=== PATIENT | female | born 1965 | race Caucasian/White ===

== ENCOUNTER 2017-05-29 19:47 | Emergency (ER) | payer MEDICAID ==
[~2017-05-29] VITALS: Ht 165.1 cm; Wt 71.0 kg
[~2017-05-29 19:47] MED LIST: PANT-47 PO; SUCR1ORA2 PO
[2017-05-29 20:18] VITALS: BP 103/78
[2017-05-29 21:07] LABS: BASOPHILS # (AUTO) 0.2 X10'3 (0-0.2); BASOPHILS % (AUTO) 1.7 % (0-1); EOSINOPHILS # (AUTO) 0.1 X10'3 (0-0.9); EOSINOPHILS % (AUTO) 0.6 % (0-6); HEMATOCRIT 43.3 % (35.0-45.0); HEMOGLOBIN 14.7 g/dl (12.0-16.0); LYMPHOCYTES # (AUTO) 0.5 X10'3 (1.1-4.8); LYMPHOCYTES % (AUTO) 5.3 % (21-51); MEAN CORPUSCULAR HEMOGLOBIN 29.6 PG (27.0-31.0); MEAN CORPUSCULAR VOLUME 87.2 FL (78-98); MEAN PLATELET VOLUME 10.2 FL (7.4-10.4); MONOCYTES # (AUTO) 0.6 X10'3 (0-0.9); MONOCYTES % (AUTO) 5.7 % (2-12); NEUTROPHILS % (AUTO) 86.7 % (42-75); PLATELET COUNT 258 X10'3 (140-440); RED BLOOD COUNT 4.96 X10'6 (4.20-5.60); RED CELL DISTRIBUTION WIDTH 13.2 % (11.5-14.5); WHITE BLOOD COUNT 10.3 X10'3 (4.5-11.0)
[2017-05-29 21:18] LABS: PROTHROMBIN TIME 9.9 SECONDS (9.0-12.0)
[2017-05-29 21:22] LABS: ALANINE AMINOTRANSFERASE 32 U/L (12-78); ALBUMIN 4.3 G/DL (3.4-5.0); ALBUMIN/GLOBULIN RATIO 1.2 (1.1-1.5); ALKALINE PHOSPHATASE 109 IU/L (46-116); ANION GAP 14 (8-16); ASPARTATE AMINO TRANSFERASE 24 U/L (10-37); BILIRUBIN,TOTAL 0.7 MG/DL (0.1-1.0); BLOOD UREA NITROGEN 20 MG/DL (7-18); BUN/CREATININE RATIO 22.5 (6.6-38.0); CALCIUM 9.5 MG/DL (8.5-10.1); CHLORIDE 102 MMOL/L (99-107); CREATININE 0.89 MG/DL (0.40-0.90); GLUCOSE 129 MG/DL (70-104); POTASSIUM 3.7 MMOL/L (3.5-5.1); SODIUM 140 MMOL/L (135-145); TOTAL CARBON DIOXIDE 24.1 MMOL/L (24-32); eGFR 67 ML/MIN
[2017-05-29 21:35] LABS: GIANT PLATELET FEW; PLATELET ESTIMATE NORMAL
[2017-05-29 23:00] LABS: LIPASE 82 U/L (73-393); TROPONIN I < 0.04 NG/ML (0.0-0.05)
[2017-06-04] MEDS ORDERED: SERT100T10 PO (09:08)
== END 2017-05-30 03:57 | disposition left against medical advice (07) ==
LOC: ER 19:52
DX: R10.13 Epigastric pain (principal); R11.2 Nausea with vomiting, unspecified; Z53.21 Procedure and treatment not carried out due to patient leaving prior to being seen by health care provider
CPT/HCPCS: 36415; 80053; 83690; 84484; 85025; 85610; 93005; 99281

== ENCOUNTER 2018-10-10 16:46 | Emergency (ER) | payer MEDICAID ==
[~2018-10-10] VITALS: Ht 154.9 cm; Wt 69.2 kg
[~2018-10-10 16:46] MED LIST changes: +HYDR-3686 PO; +SERT100T10 PO; -SUCR1ORA2 PO
--- NOTE | 2018-10-10 18:23 | NUR ---
STAFF REPORTS NIL. CALL PLACED TO NUMBER ON FILE, SPOKE WITH ISAI, SHE REPORTS THAT SHE IS RIGHT OOUTSIDE AND WILL RETURN IN TO BE ROOMED.
[2018-10-10 19:06] LABS: BASOPHILS # (AUTO) 0.1 X10'3 (0-0.2); BASOPHILS % (AUTO) 1.3 % (0-1); EOSINOPHILS # (AUTO) 0.2 X10'3 (0-0.9); EOSINOPHILS % (AUTO) 2.2 % (0-6); HEMATOCRIT 45.7 % (35.0-45.0); HEMOGLOBIN 15.5 g/dl (12.0-16.0); LYMPHOCYTES # (AUTO) 2.6 X10'3 (1.1-4.8); LYMPHOCYTES % (AUTO) 27.2 % (21-51); MEAN CORPUSCULAR HEMOGLOBIN 30.5 PG (27.0-31.0); MEAN CORPUSCULAR HGB CONC 33.9 g/dL (33.0-36.5); MEAN CORPUSCULAR VOLUME 89.9 FL (78-98); MEAN PLATELET VOLUME 8.9 FL (7.4-10.4); MONOCYTES # (AUTO) 0.7 X10'3 (0-0.9); NEUTROPHILS % (AUTO) 62.3 % (42-75); PLATELET COUNT 295 X10'3 (140-440); RED BLOOD COUNT 5.09 X10'6 (4.20-5.60); RED CELL DISTRIBUTION WIDTH 13.4 % (11.5-14.5); WHITE BLOOD COUNT 9.7 X10'3 (4.5-11.0)
[2018-10-10 19:25] LABS: ALANINE AMINOTRANSFERASE 35 U/L (12-78); ALBUMIN/GLOBULIN RATIO 1.1 (1.1-1.5); ALKALINE PHOSPHATASE 84 IU/L (46-116); ANION GAP 5 (8-16); ASPARTATE AMINO TRANSFERASE 12 U/L (10-37); BILIRUBIN,TOTAL 0.2 MG/DL (0.1-1.0); BLOOD UREA NITROGEN 17 MG/DL (7-18); BUN/CREATININE RATIO 15.6 (6.6-38.0); CALCIUM 8.7 MG/DL (8.5-10.1); CHLORIDE 104 MMOL/L (99-107); CREATININE 1.09 MG/DL (0.40-0.90); GLUCOSE 92 MG/DL (70-104); POTASSIUM 3.9 MMOL/L (3.5-5.1); SODIUM 139 MMOL/L (135-145); TOTAL CARBON DIOXIDE 30.1 MMOL/L (24-32); TOTAL PROTEIN 7.7 G/DL (6.4-8.2); eGFR 53 ML/MIN
[2018-10-10 19:27] LABS: PARTIAL THROMBOPLASTIN TIME 27 SECONDS (22-32)
[2018-10-10 20:22] VITALS: BP 124/81
== END 2018-10-10 20:23 | disposition home or self-care (01) ==
LOC: ER 16:47
DX: G89.29 Other chronic pain (principal); F32.9 Major depressive disorder, single episode, unspecified; F17.210 Nicotine dependence, cigarettes, uncomplicated; Z90.49 Acquired absence of other specified parts of digestive tract; Z79.899 Other long term (current) drug therapy
CPT/HCPCS: 36415; 71045; 80053; 84484; 85025; 85610; 85730; 93005; 99284

== ENCOUNTER 2018-12-17 23:48 | Emergency (ER) | payer MEDICAID ==
[~2018-12-17] VITALS: Ht 154.9 cm; Wt 77.3 kg
[~2018-12-17 23:48] MED LIST changes: -HYDR-3686 PO
--- NOTE | 2018-12-17 23:50 | NUR ---
20 GUAGE IV TO RIGHT HAND PLACE BY SHANKAR SANTIAGO
[2018-12-17] MEDS ORDERED: adenosine 3mg/ml 2ml vial IV ONE (23:55)
--- NOTE | 2018-12-18 | NUR ---
LABS DRAWN/ DEFIB/ CARDIO VERT PADS PLACE ON PT
--- NOTE | 2018-12-18 00:01 | NUR ---
PT SELF CONVERTED HR 92 99% ROOM AIR RESP 16 BP 152/104 NO CHEMICAL CONVERSATION NO ELECTRICAL CONVERSATION .
--- NOTE | 2018-12-18 00:03 | NUR ---
2ND EKG COMPLETED AFTER PT SELF CONVERTED SVT
[2018-12-18 00:15] LABS: BASOPHILS # (AUTO) 0.2 X10'3 (0-0.2); BASOPHILS % (AUTO) 1.6 % (0-1); EOSINOPHILS # (AUTO) 0.3 X10'3 (0-0.9); EOSINOPHILS % (AUTO) 2.3 % (0-6); HEMATOCRIT 43.3 % (35.0-45.0); HEMOGLOBIN 14.7 g/dl (12.0-16.0); LYMPHOCYTES # (AUTO) 4.5 X10'3 (1.1-4.8); LYMPHOCYTES % (AUTO) 41.3 % (21-51); MEAN CORPUSCULAR HEMOGLOBIN 29.9 PG (27.0-31.0); MEAN CORPUSCULAR VOLUME 88.1 FL (78-98); MONOCYTES % (AUTO) 9.6 % (2-12); NEUTROPHILS # (AUTO) 4.9 X10'3 (1.8-7.7); NEUTROPHILS % (AUTO) 45.2 % (42-75); PLATELET COUNT 304 X10'3 (140-440); RED BLOOD COUNT 4.92 X10'6 (4.20-5.60); RED CELL DISTRIBUTION WIDTH 12.8 % (11.5-14.5); WHITE BLOOD COUNT 10.9 X10'3 (4.5-11.0)
[2018-12-18] MEDS ORDERED: metoprolol succinate 25mg (24-HOUR) SR. Tablet PO SCH ×2 (00:15→08:00)
[2018-12-18] MEDS ORDERED: metoprolol succinate 25mg (24-HOUR) SR. Tablet PO ONE (00:15)
[2018-12-18 00:24] LABS: ALANINE AMINOTRANSFERASE 38 U/L (12-78); ALBUMIN 3.7 G/DL (3.4-5.0); ALKALINE PHOSPHATASE 87 IU/L (46-116); ANION GAP 12 (8-16); ASPARTATE AMINO TRANSFERASE 20 U/L (10-37); BILIRUBIN,TOTAL 0.2 MG/DL (0.1-1.0); BLOOD UREA NITROGEN 14 MG/DL (7-18); BUN/CREATININE RATIO 12.6 (6.6-38.0); CALCIUM 9.7 MG/DL (8.5-10.1); CHLORIDE 107 MMOL/L (99-107); CREATININE 1.11 MG/DL (0.40-0.90); GLUCOSE 127 MG/DL (70-104); SODIUM 142 MMOL/L (135-145); TOTAL CARBON DIOXIDE 22.7 MMOL/L (24-32); TOTAL PROTEIN 7.5 G/DL (6.4-8.2); eGFR 51 ML/MIN
[2018-12-18 00:28] LABS: PARTIAL THROMBOPLASTIN TIME 26 SECONDS (22-32)
[2018-12-18 00:35] LABS: LARGE PLATELETS FEW; PLATELET ESTIMATE NORMAL
[2018-12-18 00:36] LABS: MAGNESIUM 2.3 MG/DL (1.5-2.4); PHOSPHORUS 3.9 MG/DL (2.3-4.5)
[2018-12-18] MEDS ORDERED: normal saline 1000ML IV soln IVB ONE (01:10)
--- NOTE | 2018-12-18 01:10 | NUR ---
SPOKE WITH DR TUTTLE ABOUT IVF BOLUS PRIOR TO DISCHARGE . MD STATED NO NEED FOR NS BOLUS BP PRESSURE OK
--- NOTE | 2018-12-18 02:00 | NUR ---
STRIPS OF SVT AT SELFF CONVERSTION PRINTED AND ADDED TO CHART
[2018-12-18 02:43] VITALS: BP 117/87
== END 2018-12-18 02:00 | disposition home or self-care (01) ==
LOC: ER 23:48
DX: I47.1 Supraventricular tachycardia (principal); F32.9 Major depressive disorder, single episode, unspecified; G89.29 Other chronic pain; Z90.49 Acquired absence of other specified parts of digestive tract; Z79.899 Other long term (current) drug therapy
CPT/HCPCS: 36415; 71045; 80053; 83735; 84100; 84484; 85025; 85610; 85730; 93005; 99284; J0153

== ENCOUNTER 2018-12-19 16:11 | Emergency (ER) | payer MEDICAID | END 2018-12-19 19:10 | disposition left against medical advice (07) | LOC: ER 16:12 | DX: R10.9 Unspecified abdominal pain (principal); Z53.21 Procedure and treatment not carried out due to patient leaving prior to being seen by health care provider ==

== ENCOUNTER 2018-12-23 13:59 | Observation (INO) | payer MEDICAID ==
[~2018-12-23] VITALS: Ht 154.9 cm; Wt 76.4 kg
[2018-12-23 14:35] LABS: BASOPHILS # (AUTO) 0.1 X10'3 (0-0.2); BASOPHILS % (AUTO) 1.4 % (0-1); EOSINOPHILS # (AUTO) 0.3 X10'3 (0-0.9); HEMOGLOBIN 12.9 g/dl (12.0-16.0); MEAN PLATELET VOLUME 8.6 FL (7.4-10.4); NEUTROPHILS # (AUTO) 4.5 X10'3 (1.8-7.7); WHITE BLOOD COUNT 8.7 X10'3 (4.5-11.0)
[2018-12-23 14:37] LABS: EOSINOPHILS % (AUTO) 2.9 % (0-6); HEMATOCRIT 38.4 % (35.0-45.0); LYMPHOCYTES % (AUTO) 34.2 % (21-51); MEAN CORPUSCULAR HEMOGLOBIN 30.1 PG (27.0-31.0); MEAN CORPUSCULAR HGB CONC 33.7 g/dL (33.0-36.5); MEAN CORPUSCULAR VOLUME 89.4 FL (78-98); MONOCYTES # (AUTO) 0.9 X10'3 (0-0.9); MONOCYTES % (AUTO) 9.8 % (2-12); NEUTROPHILS % (AUTO) 51.7 % (42-75); PLATELET COUNT 285 X10'3 (140-440); RED BLOOD COUNT 4.29 X10'6 (4.20-5.60); RED CELL DISTRIBUTION WIDTH 12.8 % (11.5-14.5)
[2018-12-23 14:52] LABS: ALANINE AMINOTRANSFERASE 49 U/L (12-78); ALBUMIN 3.7 G/DL (3.4-5.0); ALBUMIN/GLOBULIN RATIO 1.1 (1.1-1.5); ALKALINE PHOSPHATASE 71 IU/L (46-116); ANION GAP 8 (8-16); ASPARTATE AMINO TRANSFERASE 19 U/L (10-37); BILIRUBIN,TOTAL 0.2 MG/DL (0.1-1.0); BLOOD UREA NITROGEN 16 MG/DL (7-18); BUN/CREATININE RATIO 16.7 (6.6-38.0); CALCIUM 8.4 MG/DL (8.5-10.1); CHLORIDE 105 MMOL/L (99-107); CREATININE 0.96 MG/DL (0.40-0.90); GLUCOSE 88 MG/DL (70-104); SODIUM 143 MMOL/L (135-145); TOTAL CARBON DIOXIDE 30.1 MMOL/L (24-32); eGFR 61 ML/MIN
[2018-12-23 14:58] LABS: MAGNESIUM 2.2 MG/DL (1.5-2.4)
[2018-12-23] MEDS ORDERED: mag hydrox/Alum hydrox/simeth 30ml oral suspension PO PRN (15:35)
[2018-12-23] MEDS ORDERED: ondansetron/PF 4mg/2ml inj IV PRN (15:35)
[2018-12-23] MEDS ORDERED: magnesium hydroxide 30ml (MOM) UD suspension PO PRN (15:35)
[2018-12-23] MEDS ORDERED: morphine 2 MG/ML inj. syringe IV PRN ×2 (15:35)
[2018-12-23] MEDS: normal saline 1000ml 1,000 ML IV SCH (15:58)
[2018-12-23 16:16] LABS: CLARITY,URINE SLIGHTLY CLOUDY (Clear); COLOR,URINE YELLOW (Yellow); GLUCOSE, URINE NEGATIVE (Neg); KETONES,URINE NEGATIVE (Neg); LEUKOCYTE ESTERASE ,URINE NEGATIVE (Neg); NITRITES, URINE NEGATIVE (Neg); OCCULT BLOOD,URINE NEGATIVE (Neg); PROTEIN,URINE NEGATIVE (Neg); UROBILINOGEN,URINE 0.2 E.U/dL (0.2-1.0)
[2018-12-23 16:18] LABS: UA COLLECTION TYPE CLN CATCH MIDSTREAM
--- NOTE | 2018-12-23 16:20 | NUR ---
Received report from Shannon CHAPARRO in ED. All questions answered. Patient will be admitted to room 3012A.
[2018-12-23 16:26] LABS: SQUAMOUS EPITHELIAL CELL,UR MANY /LPF (FEW)
[2018-12-23 16:27] LABS: RBC,URINE 0-2 /HPF (0-2); WBC,URINE 0-4 /HPF (0-4)
[2018-12-23 16:28] LABS: BACTERIA,URINE 1+ /HPF (Neg)
--- NOTE | 2018-12-23 16:33 | NUR ---
ECHO AT BEDSIDE
--- NOTE | 2018-12-23 16:55 | NUR ---
Patient admitted to PCU 3012A. Tele monitor applied, VS taken and stable. 2 RN skin assessment done. Pt oriented to room, has no complaints at this time.
[2018-12-23] MEDS ORDERED: regadenoson 0.4mg/5ml syringe IV PRN (17:10)
[2018-12-23] MEDS ORDERED: aminophylline 250mg/10ml inj. IV PRN (17:10)
[2018-12-23] MEDS ORDERED: metoprolol tartrate 25mg tablet PO ONE (17:10)
[2018-12-23] MEDS ORDERED: metoprolol tartrate 1mg/ml inj IV PRN (17:10)
[2018-12-23] MEDS ORDERED: nitroGLYCERIN 0.4mg SUBLingual tab SL PRN (17:10)
[2018-12-23 17:40] VITALS: BP 109/78
[2018-12-23 18:00] VITALS: BP 118/82
--- NOTE | 2018-12-23 18:05 | NUR ---
Patient in room PCU 3012. I have received report from SHANKAR Salas and had the opportunity to ask questions and assume patient care.
[2018-12-23] MEDS ORDERED: METO-292 PO (18:11)
[2018-12-23] MEDS ORDERED: KEP500T PO (18:11)
--- NOTE | 2018-12-23 18:30 | NUR ---
Patient in room PCU 3012. I have received report from SHANKAR Salas and had the opportunity to ask questions and assume patient care.
--- NOTE | 2018-12-23 18:32 | NUR ---
Problems reprioritized. Patient report given, questions answered & plan of care reviewed with Nel CHAPARRO.
[2018-12-23 19:00] VITALS: BP 134/54
[2018-12-23] MEDS ORDERED: LEVETIRACETAM PO SCH (20:00)
[2018-12-23] MEDS: levetiracetam 250mg tablet PO SCH (20:00)
[2018-12-23] MEDS: acetaminophen 325mg tablet PO PRN (20:56)
[2018-12-23] MEDS ORDERED: metoclopramide 10mg tablet PO SCH (21:00)
--- NOTE | 2018-12-23 21:00 | NUR ---
Patient states that she does not take Keppra or Reglan. Patient states she takes all medications once daily in the morning. Wellbutrin 300 mg, Claritin 10mg, and Protonix 40mg. Addendum: 12/24/18 at 0109 by Mary Omer RN Pt also denies having a history of seizures or GI problems besides GERD which she takes the Protonix 40 mg for.
[2018-12-23] MEDS: heparin, porcine 5000 units/ml vial SQ SCH (21:06)
[2018-12-23 23:00] VITALS: BP 102/72
[2018-12-24] VITALS (12 sets, daily range): BP systolic 96–117; BP diastolic 67–88
[2018-12-24] MEDS: normal saline 1000ml 1,000 ML IV SCH (02:09)
[2018-12-24 02:47] LABS: BASOPHILS # (AUTO) 0.1 X10'3 (0-0.2); EOSINOPHILS # (AUTO) 0.3 X10'3 (0-0.9); EOSINOPHILS % (AUTO) 3.5 % (0-6); HEMATOCRIT 37.9 % (35.0-45.0); HEMOGLOBIN 12.8 g/dl (12.0-16.0); LYMPHOCYTES # (AUTO) 3.4 X10'3 (1.1-4.8); LYMPHOCYTES % (AUTO) 44.7 % (21-51); MEAN CORPUSCULAR HEMOGLOBIN 30.1 PG (27.0-31.0); MEAN CORPUSCULAR HGB CONC 33.7 g/dL (33.0-36.5); MEAN CORPUSCULAR VOLUME 89.5 FL (78-98); MEAN PLATELET VOLUME 8.6 FL (7.4-10.4); MONOCYTES # (AUTO) 0.5 X10'3 (0-0.9); MONOCYTES % (AUTO) 6.9 % (2-12); NEUTROPHILS # (AUTO) 3.4 X10'3 (1.8-7.7); NEUTROPHILS % (AUTO) 43.9 % (42-75); PLATELET COUNT 257 X10'3 (140-440); RED BLOOD COUNT 4.23 X10'6 (4.20-5.60); RED CELL DISTRIBUTION WIDTH 12.8 % (11.5-14.5); WHITE BLOOD COUNT 7.7 X10'3 (4.5-11.0)
[2018-12-24] MEDS: acetaminophen 325mg tablet PO PRN (03:00)
[2018-12-24 03:03] LABS: ALBUMIN 3.3 G/DL (3.4-5.0); ANION GAP 9 (8-16); BLOOD UREA NITROGEN 15 MG/DL (7-18); BUN/CREATININE RATIO 14.7 (6.6-38.0); CHLORIDE 109 MMOL/L (99-107); CREATININE 1.02 MG/DL (0.40-0.90); GLUCOSE 93 MG/DL (70-104); POTASSIUM 4.2 MMOL/L (3.5-5.1); SODIUM 144 MMOL/L (135-145); TOTAL CARBON DIOXIDE 26.5 MMOL/L (24-32); eGFR 57 ML/MIN
[2018-12-24 03:07] LABS: CALCIUM 8.3 MG/DL (8.5-10.1)
--- NOTE | 2018-12-24 03:48 | NUR ---
Orienteer documentation: I have reviewed and agree with interventions, assessments performed and documented by SHANKAR Hernandez. Orienteer Medication Administration: For this medication-pass time frame, medication were reviewed, dispensed, administered and documented per hospital policy by SHANKAR Hernandez.
--- NOTE | 2018-12-24 06:10 | NUR ---
Problems reprioritized. Patient report given, questions answered & plan of care reviewed with SHANKAR Mirza.
--- NOTE | 2018-12-24 06:29 | NUR ---
Patient in room PCU 3012. I have received report from Mary CHAPARRO and Randee CHAPARRO and had the opportunity to ask questions and assume patient care.
[2018-12-24] MEDS: levetiracetam 250mg tablet PO SCH (07:48)
[2018-12-24] MEDS: heparin, porcine 5000 units/ml vial SQ SCH (07:48)
[2018-12-24] MEDS ORDERED: atorvastatin 20mg tablet PO SCH (08:00)
[2018-12-24] MEDS ORDERED: pantoprazole 40mg Tablet.DR PO SCH (08:00)
[2018-12-24] MEDS ORDERED: metoprolol succinate 25mg (24-HOUR) SR. Tablet PO SCH (08:00)
[2018-12-24] MEDS ORDERED: aspirin 81mg tablet.DR PO SCH (08:00)
--- NOTE | 2018-12-24 09:10 | NUR ---
Spoke w/ Dr. Dong and pharmacist in regards to pt concern of reglan and keppra medication, medication have been discontinued.
--- NOTE | 2018-12-24 11:50 | NUR ---
PAGER ID: [phone] MESSAGE: [id number] Cathryn Anderson: LUAN Stress test results in, The examination is negative for conclusive evidence of fixed or reversible perfusion abnormalities. Thanks Yuki [phone]
[2018-12-24] MEDS ORDERED: METO-395 PO (12:27)
--- NOTE | 2018-12-24 13:38 | NUR ---
PAGER ID: [phone] MESSAGE: [id number] Cathryn Anderson: FYMohini I clarified with pharmacy about the pt's keppra and reglan and it has been d/c'ed, do you want me to remove it from the discharge medlist also? Thanks Yuki [phone]
--- NOTE | 2018-12-24 15:00 | NUR ---
Pt is stable for discharge per md order, discharge instructions reviewed w/ pt all questions answered, new medication prescription called in to [facility] pharmacy in [facility] per pt request, Tele monitor box 58 removed and returned, PIV d/c'ed and clean dry dressing in place, pt is wheeled down to [facility], pt discharges at [address] in [address], all belongings w/ pt at the time of discharge.
== END 2018-12-24 15:11 | disposition home or self-care (01) ==
LOC: ER 14:00 → ED HOLD 16:17 → PCU 3S 16:57
PROVIDERS: ADMIT Family Medicine; ATTEND Family Medicine
DX: R07.89 Other chest pain (principal); I47.1 Supraventricular tachycardia; R11.0 Nausea; R06.02 Shortness of breath; R42 Dizziness and giddiness; R94.31 Abnormal electrocardiogram [ECG] [EKG]; F32.9 Major depressive disorder, single episode, unspecified; G89.29 Other chronic pain; K21.9 Gastro-esophageal reflux disease without esophagitis; Z90.49 Acquired absence of other specified parts of digestive tract; Z87.891 Personal history of nicotine dependence; Z79.899 Other long term (current) drug therapy; Z91.030 Bee allergy status
CPT/HCPCS: 36415; 71045; 78452; 80048; 80053; 81001; 83735; 83880; 84443; 84484; 85025; 85610; 87081; 93005; 93017; 93306; 96361; 96372; 96374; 99284; A9500; G0378; J0280; J1644; J2785; J7030; J8597

== ENCOUNTER 2018-12-25 14:06 | Emergency (ER) | payer MEDICAID ==
[~2018-12-25] VITALS: Ht 30.5 cm; Wt 78.0 kg
[~2018-12-25 14:06] MED LIST changes: +METO-395 PO; -SERT100T10 PO
[2018-12-25 15:48] VITALS: BP 110/74
== END 2018-12-25 16:42 | disposition home or self-care (01) ==
LOC: ER 14:07
DX: H53.9 Unspecified visual disturbance (principal); R51 Headache; H53.2 Diplopia; G89.29 Other chronic pain; F32.9 Major depressive disorder, single episode, unspecified; Z90.49 Acquired absence of other specified parts of digestive tract; Z88.5 Allergy status to narcotic agent; Z88.8 Allergy status to other drugs, medicaments and biological substances; Z79.899 Other long term (current) drug therapy
CPT/HCPCS: 70450; 99284

== ENCOUNTER 2018-12-31 03:42 | Emergency (ER) | payer MEDICAID ==
[~2018-12-31] VITALS: Ht 154.9 cm; Wt 77.0 kg
[~2018-12-31 03:42] MED LIST changes: +KEP500T PO; +METO-292 PO; +SERT100T10 PO
[2018-12-31] MEDS ORDERED: normal saline 1000ML IV soln IVB ONE (03:50)
[2018-12-31] MEDS ORDERED: magnesium 2GM in 50ml NS 50 ML IV ONE (03:50)
--- NOTE | 2018-12-31 03:52 | NUR ---
pt placed in trendelenberg and blew hard and long through empty syringe while legs were elevated 90 degress while edmd present. heart rate decreased from 177 to 90 immediately. pt affirms cessation of palpitations and states "oh, i feel so much better."
[2018-12-31 04:15] LABS: BASOPHILS # (AUTO) 0.2 X10'3 (0-0.2); EOSINOPHILS # (AUTO) 0.2 X10'3 (0-0.9); HEMOGLOBIN 13.2 g/dl (12.0-16.0)
[2018-12-31 04:18] LABS: ALANINE AMINOTRANSFERASE 46 U/L (12-78); ALBUMIN 3.6 G/DL (3.4-5.0); ALBUMIN/GLOBULIN RATIO 1.1 (1.1-1.5); ALKALINE PHOSPHATASE 77 IU/L (46-116); ANION GAP 12 (8-16); ASPARTATE AMINO TRANSFERASE 24 U/L (10-37); BASOPHILS % (AUTO) 1.8 % (0-1); BILIRUBIN,TOTAL 0.2 MG/DL (0.1-1.0); BLOOD UREA NITROGEN 18 MG/DL (7-18); BUN/CREATININE RATIO 16.1 (6.6-38.0); CALCIUM 8.8 MG/DL (8.5-10.1); CHLORIDE 106 MMOL/L (99-107); CREATININE 1.12 MG/DL (0.40-0.90); EOSINOPHILS % (AUTO) 2.2 % (0-6); GLUCOSE 119 MG/DL (70-104); LYMPHOCYTES # (AUTO) 3.9 X10'3 (1.1-4.8); LYMPHOCYTES % (AUTO) 37.7 % (21-51); MEAN CORPUSCULAR HEMOGLOBIN 30.5 PG (27.0-31.0); MEAN CORPUSCULAR HGB CONC 34.7 g/dL (33.0-36.5); MEAN PLATELET VOLUME 9.2 FL (7.4-10.4); MONOCYTES # (AUTO) 0.9 X10'3 (0-0.9); MONOCYTES % (AUTO) 8.8 % (2-12); NEUTROPHILS # (AUTO) 5.2 X10'3 (1.8-7.7); NEUTROPHILS % (AUTO) 49.5 % (42-75); PLATELET COUNT 296 X10'3 (140-440); POTASSIUM 3.9 MMOL/L (3.5-5.1); RED BLOOD COUNT 4.31 X10'6 (4.20-5.60); RED CELL DISTRIBUTION WIDTH 13.2 % (11.5-14.5); SODIUM 141 MMOL/L (135-145); TOTAL CARBON DIOXIDE 23.2 MMOL/L (24-32); TOTAL PROTEIN 6.9 G/DL (6.4-8.2); WHITE BLOOD COUNT 10.5 X10'3 (4.5-11.0); eGFR 51 ML/MIN
--- NOTE | 2018-12-31 04:21 | NUR ---
PT REPORTS SHE IS FEELING MUCH BETTER AND THAT IT IS EASIER TO BREATHE. SHE CONTINUES TO BE IN NSR IN THE 80'S
[2018-12-31 04:28] LABS: CLARITY,URINE CLEAR (Clear); COLOR,URINE YELLOW (Yellow); GLUCOSE, URINE NEGATIVE (Neg); KETONES,URINE NEGATIVE (Neg); LEUKOCYTE ESTERASE ,URINE SMALL (Neg); NITRITES, URINE NEGATIVE (Neg); OCCULT BLOOD,URINE NEGATIVE (Neg); PROTEIN,URINE NEGATIVE (Neg); UROBILINOGEN,URINE 0.2 E.U/dL (0.2-1.0)
[2018-12-31 04:31] LABS: UA COLLECTION TYPE VOIDED
[2018-12-31 04:33] LABS: URINE AMPHETAMINE SCREEN NEGATIVE (Neg); URINE BARBITUATE SCREEN NEGATIVE (Neg); URINE BENZODIAZEPINES SCREEN NEGATIVE (Neg); URINE CANNABINOID SCREEN NEGATIVE (Neg); URINE COCAINE SCREEN NEGATIVE (Neg); URINE METHADONE SCREEN NEGATIVE (Neg); URINE OPIATE SCREEN NEGATIVE (Neg); URINE PHENCYCLIDINE SCREEN NEGATIVE (Neg)
[2018-12-31 04:38] LABS: BACTERIA,URINE NONE SEEN /HPF (Neg); RBC,URINE NONE SEEN /HPF (0-2); SQUAMOUS EPITHELIAL CELL,UR MODERATE /LPF (FEW); WBC,URINE 0-4 /HPF (0-4)
[2018-12-31] MEDS ORDERED: metoprolol succinate 25mg (24-HOUR) SR. Tablet PO ONE (04:45)
--- NOTE | 2018-12-31 05:31 | NUR ---
PT RESTING COMFORTABLY. NO DISTRESS NOTED. WILL CONTINUE TO MONITOR.
[2018-12-31 06:09] VITALS: BP 94/71
== END 2018-12-31 06:10 | disposition home or self-care (01) ==
LOC: ER 03:42
DX: I47.1 Supraventricular tachycardia (principal); I10 Essential (primary) hypertension; G89.29 Other chronic pain; F32.9 Major depressive disorder, single episode, unspecified; Z90.49 Acquired absence of other specified parts of digestive tract; Z88.8 Allergy status to other drugs, medicaments and biological substances; Z79.899 Other long term (current) drug therapy
CPT/HCPCS: 36415; 80053; 80305; 81001; 85025; 87088; 93005; 96365; 96366; 99284; J3475; J7030

== ENCOUNTER 2019-01-03 03:35 | Emergency (ER) | payer MEDICAID ==
[~2019-01-03] VITALS: Ht 154.9 cm; Wt 77.0 kg
[~2019-01-03 03:35] MED LIST changes: -KEP500T PO; -METO-292 PO; -SERT100T10 PO
[2019-01-03 04:18] LABS: BASOPHILS # (AUTO) 0.1 X10'3 (0-0.2); BASOPHILS % (AUTO) 1.5 % (0-1); EOSINOPHILS # (AUTO) 0.3 X10'3 (0-0.9); EOSINOPHILS % (AUTO) 2.8 % (0-6); HEMATOCRIT 40.2 % (35.0-45.0); HEMOGLOBIN 13.7 g/dl (12.0-16.0); LYMPHOCYTES # (AUTO) 3.5 X10'3 (1.1-4.8); LYMPHOCYTES % (AUTO) 37.4 % (21-51); MEAN CORPUSCULAR HEMOGLOBIN 30.3 PG (27.0-31.0); MEAN CORPUSCULAR HGB CONC 34.1 g/dL (33.0-36.5); MEAN CORPUSCULAR VOLUME 88.9 FL (78-98); MEAN PLATELET VOLUME 9.1 FL (7.4-10.4); MONOCYTES # (AUTO) 0.8 X10'3 (0-0.9); MONOCYTES % (AUTO) 8.8 % (2-12); NEUTROPHILS # (AUTO) 4.7 X10'3 (1.8-7.7); NEUTROPHILS % (AUTO) 49.5 % (42-75); PLATELET COUNT 344 X10'3 (140-440); RED BLOOD COUNT 4.52 X10'6 (4.20-5.60); RED CELL DISTRIBUTION WIDTH 12.9 % (11.5-14.5); WHITE BLOOD COUNT 9.4 X10'3 (4.5-11.0)
[2019-01-03] MEDS ORDERED: sucralfate 1gm/10ml UD suspension PO SCH (04:30)
[2019-01-03] MEDS ORDERED: ondansetron 4mg rapidly disintigrating tab PO ONE (04:30)
[2019-01-03] MEDS ORDERED: LIDOcaine Viscous 15ml cup MM PRN (04:30)
[2019-01-03] MEDS ORDERED: mag hydrox/Alum hydrox/simeth 30ml oral suspension PO ONE (04:30)
[2019-01-03 04:40] VITALS: BP 99/69
[2019-01-03 04:42] LABS: ALANINE AMINOTRANSFERASE 45 U/L (12-78); ALBUMIN 3.6 G/DL (3.4-5.0); ALKALINE PHOSPHATASE 79 IU/L (46-116); ANION GAP 9 (8-16); ASPARTATE AMINO TRANSFERASE 21 U/L (10-37); BILIRUBIN,TOTAL 0.2 MG/DL (0.1-1.0); BLOOD UREA NITROGEN 20 MG/DL (7-18); BUN/CREATININE RATIO 17.4 (6.6-38.0); CALCIUM 9.1 MG/DL (8.5-10.1); CHLORIDE 104 MMOL/L (99-107); CREATININE 1.15 MG/DL (0.40-0.90); GLUCOSE 122 MG/DL (70-104); POTASSIUM 4.3 MMOL/L (3.5-5.1); SODIUM 141 MMOL/L (135-145); TOTAL CARBON DIOXIDE 27.7 MMOL/L (24-32); TOTAL PROTEIN 7.2 G/DL (6.4-8.2); eGFR 49 ML/MIN
== END 2019-01-03 05:16 | disposition home or self-care (01) ==
LOC: ER 03:36
DX: I47.1 Supraventricular tachycardia (principal); K21.9 Gastro-esophageal reflux disease without esophagitis; G89.29 Other chronic pain; F32.9 Major depressive disorder, single episode, unspecified; Z90.49 Acquired absence of other specified parts of digestive tract; Z88.1 Allergy status to other antibiotic agents; Z79.899 Other long term (current) drug therapy
CPT/HCPCS: 36415; 71045; 80053; 84484; 85025; 93005; 99284